=== PATIENT | male | born 1950 | race Caucasian/White ===

== ENCOUNTER 2017-04-16 08:41 | Day surgery (SDC) | payer MEDICARE, BC, MEDICAID ==
[~2017-04-16] VITALS: Ht 167.6 cm; Wt 63.5 kg
[2017-04-16] MEDS ORDERED: ZOVIRAX400 MG PO (09:14)
[2017-04-16] MEDS ORDERED: TENORMIN25 MG PO (09:14)
[2017-04-16] MEDS ORDERED: TUMS500 MG PO (09:15)
[2017-04-16] MEDS ORDERED: GABAPENTIN100 MG PO (09:16)
[2017-04-16] MEDS ORDERED: SYNTHROID50 MCG PO (09:16)
[2017-04-16] MEDS ORDERED: CYPROHEPTADINE H4 MG PO (09:16)
[2017-04-16] MEDS ORDERED: OMEPRAZOLE20 M1 PO (09:17)
[2017-04-16] MEDS ORDERED: ZOFRAN8 MG PO (09:17)
[2017-04-16] MEDS ORDERED: KLOR-CON 1010 MEQ PO (09:18)
[2017-04-16 09:22] LABS: BASOPHILS 0.3 % (0-2); EOSINOPHILS 0.8 % (0-7); HEMATOCRIT 37.9 % (42.0-54.0); HEMOGLOBIN 12.2 g/dL (13.5-17.5); IMMATURE GRANULOCYTES 0.3 % (0-5); LYMPHOCYTES 27.8 % (15-50); MCH 34.5 pg (26.0-34.0); MCHC 32.2 g/dL (31.0-37.0); MCV 107.1 fL (80.0-100.0); MEAN PLATELET VOLUME 11.8 fL (7.4-10.4); MONOCYTES 14.2 % (2-11); NEUTROPHILS 56.6 % (40-80); PLATELET COUNT 73 10x3/uL (130-400); RBC 3.54 10x6/uL (4.20-6.10); RDW 15.2 % (11.5-14.5); WBC 3.8 10x3/uL (4.8-10.8)
--- NOTE | 2017-04-16 09:23 | NUR ---
DR. MARX ADVISED OF PT'S BP. ORDER REC'D.
[2017-04-16 09:32] LABS: APTT 30.6 SECONDS (22.8-39.4); INR 1.07 (0.85-1.17); PROTIME 13.5 SECONDS (11.6-15.0)
[2017-04-16 09:34] LABS: ANION GAP 9.7 mmol/L (8-16); CALCIUM 8.2 mg/dL (8.5-10.1); CARBON DIOXIDE 29.2 mmol/L (21.0-32.0); CREATININE - SERUM 4.7 mg/dL (0.6-1.3); POTASSIUM - SERUM 3.9 mmol/L (3.5-5.1)
[2017-04-16 09:41] VITALS: BP 207/113; Ht 167.6 cm; Wt 63.5 kg
[2017-04-16] MEDS ORDERED: ULTRAM50 MG PO (13:21)
--- NOTE | 2017-04-16 15:40 | NUR ---
PATIENT AMBULATES TO BATHROOM AND VOIDS LARGE AMOUNT IN TOILET WITHOUT DIFFICULTY. AMBULATES TO BATHROOM WITHOUT UNSTEADINESS OR DIZZINESS. LEFT FOREARM PIV DC'D WITH TIP INTACT. PATIENT DRESSING IN PERSONAL CLOTHING, SPOUSE IN ROOM
--- NOTE | 2017-04-16 16:00 | NUR ---
DISCHARGE INSTRUCTIONS REVIEWED WITH PATIENT AND SPOUSE. PATIENT DISCHARGED HOME VIA WHEELCHAIR TO PRIVATE VEHICLE WITH SPOUSE
--- NOTE | 2017-04-20 15:06 | OP ---
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 OPERATION PERFORMED: Creation of a right brachiobasilic David type AV fistula as the planned first stage of 2 operations to create a brachial artery to translocated basilic vein AV fistula. SURGEON: Zak Burns MD ANESTHESIA: General with LMA per ONLINE MEDIA DIRECTOR. PREOPERATIVE NOTE: Mr. 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 Cates for provision of an access. He is brought to the hospital today with plans to create a fistula in the right arm. 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 Preoperative vein mapping procedures indicate likely the basilic vein will be the choice. Note, the patient is chronically thrombocytopenic. His platelet count this morning was 73,000, this has been evaluated and worked up at [facility] by his oncologist and they are being a little more to do about it. I planned to go ahead and transfuse him with 1 unit of apheresed platelets as soon as it is available intraoperatively. PROCEDURE: With patient under general anesthesia in supine position, he was prepped and draped in sterile manner. A Othello drain was used as a proximal venous tourniquet and nitroglycerin paste was applied to the skin of the arm and the forearm. I examined him then with ultrasound and confirmed that indeed the basilic vein was the largest vein at the antecubital level of the upper arm and the brachial artery was acceptable at the antecubital level for source of the fistula and I elected to go ahead with brachiobasilic fistula, but it will need 2 stages. I made a sigmoid shaped incision across the antecubital space on the medial aspect. I exposed the basilic vein and the brachial artery. The 2 vessels were controlled with doubly looped Silastic tapes. They were occluded and approximated side to side with same as needed. The vein was opened and flushed proximally and distally with heparinized saline and a corresponding arteriotomy had approximately a centimeter in length or 8 mm in length was made and flushed proximally and distally with heparinized saline. A [id number] anastomosis was then performed with continuous running 7-0 Prolene after which the vein distal was closed with 2 Hemoclips. Evicel sealant was applied to the anastomosis suture line and after a period of observation and later once for the Evicel to OPERATIVE REPORT [id number] CASH TANNER, the loops were released and excellent flow was immediately established in the fistula and restored in the brachial artery and the suture line was hemostatic. Good continuous pulsatile Doppler flow was demonstrated with handheld Doppler in the basilic vein above the level of the anastomosis and good flow in the basilic vein proximal and distal to the anastomosis was documented. The wound irrigated with Ancef and gentamicin solution, was irrigated and infiltrated with 0.25% Marcaine without epinephrine. The wound was closed with interrupted inverted 3-0 Vicryl and then running intracuticular 4-0 Monocryl and Dermabond glue. It was dressed with Maxorb Ag, Tegaderm and Cavilon skin prep. The patient was awakened and taken to the recovery room with good fistula function. He will be allowed to go home later today. The platelets we had ordered has still not arrived and if they are going to arrive any reasonable period of time, I think we will go ahead and give him that unit before he is discharged to home. He is given an appointment to return to see me in my office next week. He is also given my personal cell number so that if he should meet me after office hours, particularly should he have bleeding or any other problems or concerns he could call me directly. He is given a prescription for tramadol 50 mg tablets. He can take 1 p.o. q.4 hours p.r.n. pain. Blood loss during the procedure was none. No specimen was submitted. All sponges, instruments and needles were accounted for. No drain was used. TRANSINT:[id number] Voice Confirmation ID: [id number] DOCUMENT ID: [id number] ZAK BURNS MD at 1506 CC: JODI CATES MD [id number] DICTATION DATE: 04/16/17 1342 BARREL RIFLER BROACH: 04/16/17 1427 [facility] 04/16/17 [place] [id number] [place] [address]
== END 2017-04-16 16:00 | disposition home or self-care (01) ==
LOC: D.OPS 08:41
PROVIDERS: Surgery
DX: C90.00 Multiple myeloma not having achieved remission (principal); E85.0 Non-neuropathic heredofamilial amyloidosis; N08 Glomerular disorders in diseases classified elsewhere; D69.6 Thrombocytopenia, unspecified; Z01.812 Encounter for preprocedural laboratory examination

== ENCOUNTER 2017-06-04 05:14 | Inpatient (IN) | payer MEDICARE, BC, MEDICAID ==
[~2017-06-04] VITALS: Ht 167.6 cm; Wt 57.2 kg
--- NOTE | ~2017-06-04 | OP ---
PATIENT NAME: CASH TANNER MEDICAL RECORD: [id number] :52 LOCATION:D.M2 D.2131 ADMISSION DATE:06/04/17 SURGEON: ZAK BURNS MD DATE OF OPERATION: 06/04/2017 REFERRING PHYSICIAN: Dr. Cates. PREOPERATIVE DIAGNOSES: End-stage renal disease and dependence on hemodialysis and intraoperative injury of the left brachial artery requiring an interpositioned reversed autogenous saphenous vein graft. SURGEON: Zak Burns MD ANESTHESIA: General with LMA per TANK OFFICER. PREOPERATIVE NOTE: Mr. Tanner is a 67-year-old white male patient who has end-stage renal disease and has had a prior David type brachial basilic AV fistula created in the antecubital space, which of course does not provide an adequate length of the fistula to access and for some reason, there has been prolonged delay and he has returned to the operating room for translocation procedure. At any rate, he is brought back to the OR to translocate the fistula at this point. DESCRIPTION OF PROCEDURE: Under general anesthesia, the patient was prepped and draped in a sterile manner and a long incision on the medial aspect of the arm was made and the basilic vein fully mobilized from the axilla to the arterial anastomosis. There was inflammatory change around the vein distally just above the arterial anastomosis from its previous venipunctures site and the arterial anastomosis itself seemed small and also the basilic vein had not dilated as much as I would have expected, I think due to impaired inflow. As I said, the vein was fully mobilized and was treated with topical papaverine, a segment of brachial artery above the antecubital space was exposed, treated with papaverine, and controlled with Silastic loops. The vein was clamped and divided just above the arterial anastomosis beveling the vein in preparation for subsequent reanastomosis. The vein was flushed with heparinized saline and an atraumatic vascular clamp applied proximally. The vein was then placed in a subcutaneous tunnel and the beveled end anastomosed end-to-side to the brachial artery after opening the brachial artery and flushing it proximally and distally with heparinized saline. The anastomosis was technically difficult and unsatisfactory and so was redone and during this process, the arteriotomy in the brachial vein tore and extended and subsequently the involved segment of brachial artery really had to be replaced. I had the right thigh prepped and draped in a sterile manner and used ultrasound to position an incision directly over the proximal saphenous vein. An incision about a handbreadth in width was made and the vein mobilized from the surrounding structures. It was divided and ligated proximally and distally. It was flushed with heparinized saline, treated with topical papaverine and put aside momentarily. The patient was systemically heparinized and the segment of brachial artery was excised between clamps and beveled and the vein was then reversed and anastomosed end-to-side to the end of the proximal brachial artery and then flushed again with heparinized saline. It was then anastomosed end-to-end to the distal brachial artery. Both these anastomoses end-to-end done with 7-0 Prolene and when completed and the occluding loops and clamps were released, excellent flow was established in the artery with good perfusion of the forearm and hand with good Doppler flow. I then anastomosed the bevelled end of the basilic vein to the side of the OPERATIVE REPORT [id number] CASH TANNER interposition segment of saphenous vein. This was also done with 7-0 Prolene and that anastomosis was about 1 cm in length. When that was completed and the occluding loops and clamps were released, all the suture lines were hemostatic and excellent flow was established immediately within the fistula. The wounds were irrigated with Ancef and gentamicin solution and closed in layers with interrupted 3-0 Vicryl. I left a 10-mm flat close suction drain in the wound and brought out through a separate stab incision and attached to suction. Skin was closed with running intracuticular Monocryl and Dermabond glue and sterile dressings of Maxorb Ag, Tegaderm, and Cavilon skin prep were applied. The patient's thigh incision was closed in layers with Vicryl and running intracuticular Monocryl and Dermabond glue and a similar dressing of Maxorb Ag, Tegaderm, and Cavilon. The patient was awakened and with satisfactory arterial inflow to the right hand was taken to the recovery room. Blood loss during the operation actually was not great, less than 100 cc, and none was replaced intraoperatively. All sponges, instruments, and needles were accounted for. One drain was used and no surgical specimen was actually submitted for histopathology. TRANSINT:[id number] Voice Confirmation ID: [id number] DOCUMENT ID: [id number] ZAK BURNS MD at 1019 CC: [id number] DICTATION DATE: 06/16/17 1429 STAMPING DIE TRY OUT WORKER: 06/16/17 1504 [facility] [place] 06/06/17 [place] [id number] [place] [id number]
[~2017-06-04 05:14] MED LIST: CYPROHEPTADINE H4 MG PO; GABAPENTIN100 MG PO; KLOR-CON 1010 MEQ PO; OMEPRAZOLE20 M1 PO; SYNTHROID50 MCG PO; TENORMIN25 MG PO; TUMS500 MG PO; ULTRAM50 MG PO; ZOFRAN8 MG PO; ZOVIRAX400 MG PO
[2017-06-04 06:28] LABS: BASOPHILS 0.1 % (0-2); HEMATOCRIT 37.3 % (42.0-54.0); HEMOGLOBIN 11.2 g/dL (13.5-17.5); IMMATURE GRANULOCYTES 0.7 % (0-5); LYMPHOCYTES 24.9 % (15-50); MCH 33.2 pg (26.0-34.0); MCV 110.7 fL (80.0-100.0); MEAN PLATELET VOLUME 10.4 fL (7.4-10.4); MONOCYTES 12.4 % (2-11); NEUTROPHILS 58.9 % (40-80); RBC 3.37 10x6/uL (4.20-6.10); RDW 14.7 % (11.5-14.5); WBC 9.5 10x3/uL (4.8-10.8)
[2017-06-04] MEDS ORDERED: TENORMIN50 MG PO (06:37)
[2017-06-04] MEDS ORDERED: ZOVIRAX200 MG PO (06:39)
[2017-06-04 06:42] LABS: ANION GAP 12.4 mmol/L (8-16); CALCIUM 8.4 mg/dL (8.5-10.1); CARBON DIOXIDE 29.3 mmol/L (21.0-32.0); CREATININE - SERUM 5.8 mg/dL (0.6-1.3); POTASSIUM - SERUM 5.7 mmol/L (3.5-5.1)
[2017-06-04 06:44] LABS: INR 0.98 (0.85-1.17); PROTIME 12.6 SECONDS (11.6-15.0)
[2017-06-04 06:46] LABS: PLATELET COUNT 136 10x3/uL (130-400)
[2017-06-04 07:10] VITALS: BP 139/70; BMI 20.7
[2017-06-04] MEDS ORDERED: HYDROCODON-ACE1 EAC7 PO (14:18)
[2017-06-04 19:10] VITALS: BP 134/69; Ht 167.6 cm; Wt 57.2 kg
[2017-06-04 20:00] VITALS: BP 102/52
[2017-06-05] VITALS: BP 99/60
[2017-06-05 04:00] VITALS: BP 120/66
[2017-06-05 08:28] VITALS: BP 121/72
[2017-06-05 11:38] VITALS: BP 99/51
[2017-06-05 12:35] LABS: BASOPHILS 0.1 % (0-2); EOSINOPHILS 1.1 % (0-7); IMMATURE GRANULOCYTES 0.3 % (0-5); LYMPHOCYTES 18.2 % (15-50); MCH 33.2 pg (26.0-34.0); MCV 110.8 fL (80.0-100.0); MEAN PLATELET VOLUME 9.8 fL (7.4-10.4); MONOCYTES 8.2 % (2-11); NEUTROPHILS 72.1 % (40-80); PLATELET COUNT 119 10x3/uL (130-400); RDW 15.2 % (11.5-14.5)
[2017-06-05 12:36] LABS: HEMATOCRIT 26.7 % (42.0-54.0); RBC 2.41 10x6/uL (4.20-6.10)
[2017-06-05 13:02] LABS: ALBUMIN 2.5 g/dL (3.4-5.0); ANION GAP 13.5 mmol/L (8-16); BILIRUBIN - TOTAL 0.31 mg/dL (0.2-1.3); CALCIUM 7.7 mg/dL (8.5-10.1); CARBON DIOXIDE 30.7 mmol/L (21.0-32.0); CREATININE - SERUM 5.5 mg/dL (0.6-1.3)
[2017-06-05 13:07] LABS: POTASSIUM - SERUM 5.2 mmol/L (3.5-5.1)
[2017-06-05 15:18] VITALS: BP 116/69
[2017-06-05 19:00] VITALS: BP 125/71
[2017-06-06 04:00] VITALS: BP 136/68
[2017-06-06 08:18] VITALS: BP 127/71
[2017-06-14 17:13] LABS: AEROBE ID Final report (())
== END 2017-06-06 10:51 | disposition home or self-care (01) | DRG 628 ==
LOC: D.OPS 05:14 → D.M2 15:01 → D.OPS 16:20 → D.M2 06-05 10:58 → D.OPS 06-05 10:59 → D.M2 06-06 10:51
PROVIDERS: Internal Medicine; Surgery
PROC: 06BP0ZZ Excision of Right Saphenous Vein, Open Approach (ICD-10-PCS; 2017-06-04)
PROC: 5A1D70Z Performance of Urinary Filtration, Intermittent, Less than 6 Hours Per Day (ICD-10-PCS; principal; 2017-06-04 08:00)
PROC: 031 Upper Arteries, Bypass (ICD-10-PCS; 2017-06-04 08:00)
DX: E87.5 Hyperkalemia (principal); N18.6 End stage renal disease; I12.0 Hypertensive chronic kidney disease with stage 5 chronic kidney disease or end stage renal disease; C90.00 Multiple myeloma not having achieved remission; I97.51 Accidental puncture and laceration of a circulatory system organ or structure during a circulatory system procedure; E85.89 Other amyloidosis; Z99.2 Dependence on renal dialysis

== ENCOUNTER → 2019-01-28 07:33 | Outpatient (CLI) | payer MEDICARE, BC, MEDICAID ==
[2017-06-04 19:10] VITALS: BMI 24.2
[~2019-01-28 07:33] MED LIST changes: +HYDROCODON-ACE1 EAC7 PO; +TENORMIN50 MG PO; +ZOVIRAX200 MG PO
--- NOTE | 2019-01-30 12:52 | EC ---
PATIENT:CASH FERMIN DATE OF SERVICE: 01/28/19 SEX: M MEDICAL RECORD: [id number] DATE OF : 52 LOCATION:D.[facility] AGE OF PATIENT: 68 ADMISSION DATE: 01/28/19 REFERRING PHYSICIAN: INTERPRETING PHYSICIAN: MORIAH YOUNG MD ECHOCARDIOGRAM REPORT ECHO CHARGES 4 ECHO COMPLETE Date: 01/28/19 CLINICAL DIAGNOSIS: MURMUR/DIZZINESS/SYNCOPE/[place] ECHOCARDIOGRAPHIC MEASUREMENTS (adult normal given) AC root (d.<3.7cm) 3.1 cm LV Septum d (<1.2 cm> 1.3 cm Valve Excursion 1.9 cm LV Septum (systole) 2.2 cm Left Atria (s.<4.0cm> 4.0 cm LVPW d(<1.2cm) 1.3 cm RV (d.<2.3cm) 2.4 cm LVPW (sytole) 2.1 cm LV diastole(<5.6CM) 6.6 cm MV E-F(>70mm/sec) cm LV systole 3.8 cm LVOT Diameter 1.8 cm MV exc.(>10mm) cm Est.ejection fraction (50-75%) % DOPPLER: LVIT cm/sec A 134 cm/sec E 150 cm/sec LA cm/sec RVSP 20.0 mmHg LVOT 127 cm/sec AOP1/2T m/s Asc. Ao 156 cm/sec RVOT 67.0 cm/sec RA cm/sec PA 106 cm/sec AV Gradient Peak 9.8 mmHg AV Mean 5.6 mmHg AV Area 1.9 cm MV Gradient Peak 8.5 mmHg MV Mean 3.8 mmHg MV Area cm COMMENTS: OP - HC Behavioral Health Consultant: 1 KINGA SULLIVANOE Pump Attendant: 3 Dr. Silver TAPE# PACS Pericardial Effusion N DATE OF SERVICE: 01/28/2019 Adequate 2D echo, Color Flow, Spectral Doppler, and M-mode LVH is present. LV internal dimensions are normal. Wall motion is normal. EF is greater than or equal to 50% to 55%. Aortic valve with sclerosis with no evidence of stenosis by Doppler interrogation. Left atrium is normal at 4.0 cm. Mitral valve is thickened. [id number] MR. Right-sided chambers grossly normal. Mild TR. ECHOCARDIOGRAM REPORT [id number] CASH FERMIN TRANSINT:[id number] Voice Confirmation ID: [id number] DOCUMENT ID: [id number] MORIAH YOUNG MD at 1252 CC: [id number] DICTATION DATE: 01/29/19 161 PRODUCTION TESTER: 01/29/19 2336 DEP CLI 01/28/19 [place] [id number] [place] [id number]
== END | disposition home or self-care (01) ==
LOC: D.HCCECHO 07:33 → D.HCCARDIO 08:30
PROVIDERS: ATTEND Internal Medicine Interventional Cardiology
DX: R09.89 Other specified symptoms and signs involving the circulatory and respiratory systems (principal)